=== PATIENT | female | born 1945 ===

== ENCOUNTER 2019-03-16 08:33 | Day surgery (SDC) | payer MEDICARE, OTHER ==
[2019-03-16 09:16] VITALS: BMI 25.4
[2019-03-16] MEDS ORDERED: Lactated Ringer's 1,000 ML IV ONE (10:20)
[2019-03-16] MEDS ORDERED: Etomidate 20 mg/10ml Inj IV ONE (10:21)
[2019-03-16] MEDS ORDERED: Propofol 10 mg/ml Inj (20 ML) ONE (10:21)
--- NOTE | 2019-03-16 10:21 | CP.SDSHP ---
Same Day Surgery H & P - History Proposed Procedure: colonoscopy Pre-Op Diagnosis: screen - Previous Medical/Surgical History Comments: chol, OA - Allergies Allergies: Allergies No Known Allergies Allergy (Verified 03/16/19 09:16) - Physical Exam Vital Signs: Vital Signs 03/16/19 09:00 Temperature 98.9 F Pulse Rate 78 Respiratory 12 Rate Blood Pressure 115/80 O2 Sat by Pulse 98 Oximetry Mental Status: Alert & Oriented x3 Neuro: WNL Heart: WNL Lungs: WNL GI: WNL - {Optional Preform as Required} Abdomen: WNL - Impression Impression: screen Pt. Evaluated Today:Candidate for Anesthesia & Procedure: Yes - Date & Time Date: 03/16/19 Time: 10:00 Short Stay Discharge - Short Stay Discharge Admitting Diagnosis/Reason for Visit: ENCOUNTER FOR SCREENING FOR MALIGNANT NEOPLASM OF Disposition: HOME/ ROUTINE
[2019-03-16 11:17] VITALS: TEMP 99.5
[2019-03-16 11:24] VITALS: PULSE 64; O2SAT 98
[2019-03-16 13:39] VITALS: BP 105/70; RESP 14
== END 2019-03-16 12:25 | disposition home or self-care (01) ==
LOC: C.ENDO 08:33
PROVIDERS: ATTEND Internal Medicine Gastroenterology
DX: Z12.11 Encounter for screening for malignant neoplasm of colon (principal); D12.5 Benign neoplasm of sigmoid colon; D12.7 Benign neoplasm of rectosigmoid junction; K57.30 Diverticulosis of large intestine without perforation or abscess without bleeding; K64.1 Second degree hemorrhoids
CPT/HCPCS: 45380; 88305; J2001; J2704; J7120